=== PATIENT | male | born 1935 | race Caucasian/White ===

== ENCOUNTER 2019-08-19 10:36 | Emergency (ER) | payer MEDICARE, OTHER ==
[2019-08-19 11:25] LABS: CHLORIDE,CL 106 mmol/L (98-107); SODIUM,NA 143 mmol/L (136-145)
[2019-08-19 11:26] LABS: ANION GAP 13.7 mmol/L (10-20)
[2019-08-19] MEDS ORDERED: Doxycycline 100 MG Cap PO ONE (11:47)
--- NOTE | 2019-08-19 11:51 | CR ---
[id number] RAD/RAD Chest PA And Lateral EXAM: FRONTAL AND LATERAL CHEST INDICATION: SYNCOPE, BRADYCARDIA. COMPARISON: June 24, 2015. DISCUSSION: The lungs are mildly hyperinflated, but clear. Normal heart size. Stimulator generator overlying the left upper chest. IMPRESSION: 1. No acute findings. Frank Rubio MD 08/19/19 1401 Thank you for allowing us to participate in the care of your patient.
[2019-08-19 12:36] VITALS: BP 118/69; PULSE 78
--- NOTE | 2019-08-19 19:00 | EDM.PDOC ---
ED HPI GENERAL MEDICAL PROBLEM - General Chief Complaint: General Time Seen by Provider: 08/19/19 10:36 Source of Information: Reports: Patient, Family History Limitations: Reports: No Limitations - History of Present Illness INITIAL COMMENTS - FREE TEXT/NARRATIVE: Pt. presents to ER from clinic. He states that he has been experiencing cough, chest congestion for the past several days. He states that last night began experiencing increased fatigue and weakness. Denies any nausea, vomiting, or diarrhea. Pt. states that he has not been experiencing any sore throat. No rhinorrhea. He states that he has his flu shot this year. Denies any chest pain, increased peripheral edema, rashes, or other worrisome signs/symptoms. Onset: Today Onset Date: 08/19/19 Duration: Constant Location: Reports: Generalized Severity: Moderate - Related Data Allergies Allergy/AdvReac Type Severity Reaction Status Date / Time celecoxib [From Celebrex] Allergy Cannot Verified 08/19/19 10:52 Remember memantine HCl [From Namenda] Allergy Other Verified 08/19/19 10:52 rofecoxib [From Vioxx] Allergy Cannot Verified 08/19/19 10:52 Remember donepezil HCl [From Aricept] AdvReac Diarrhea Verified 08/19/19 10:52 Home Meds: Home Meds Aspirin [Halfprin] 81 mg PO MOWEFR 12/06/14 [History] Cholecalciferol (Vitamin D3) [Vitamin D3] 1,000 units PO BID 12/06/14 [History] Gabapentin [Neurontin] 900 mg PO TID 12/06/14 [History] Simvastatin 20 mg PO BEDTIME 12/06/14 [History] Cyanocobalamin (Vitamin B-12) [B-12] 1,000 mcg PO DAILY 06/26/15 [History] Albuterol/Ipratropium [Combivent Respimat] 16 gm INH QIDRT #120 inhaler [Rx] Furosemide [Lasix] 40 mg PO DAILY #30 tablet 07/04/15 [Rx] Docusate Sodium [Colace] 100 mg PO BID 08/19/19 [History] Famotidine [Pepcid] 20 mg PO BEDTIME 08/19/19 [History] Salmeterol Xinafoate [Serevent Diskus] 50 mcg INH Q12H 08/19/19 [History] Warfarin [Coumadin] 2.5 mg PO ASDIRECTED 08/19/19 [History] Past Medical History Cardiovascular History: Reports: Afib, High Cholesterol, Hypertension, Other ( See Below) Other Cardiovascular History: diastolic dysfunction Respiratory History: Reports: Asthma, Sleep Apnea Gastrointestinal History: Reports: Colon Polyp, Diverticulosis, GERD Musculoskeletal History: Reports: Other (See Below) Other Musculoskeletal History: essential tremor, lumbosacral radiculopathy at L5 Neurological History: Reports: CVA, TIA Other Neuro History: cognitive impairment Oncologic (Cancer) History: Reports: Prostate, Other (See Below) Other Oncologic History: skin - Past Surgical History Other Neurological Surgeries/Procedures: deep brain stimulator placement Social & Family History - Family History Family Medical History: Noncontributory - Tobacco Use Smoking Status *Q: Unknown Ever Smoked ED ROS GENERAL - Review of Systems Review Of Systems: See Below Constitutional: Reports: No Symptoms HEENT: Reports: No Symptoms Respiratory: Reports: Shortness of Breath, Cough, Sputum Cardiovascular: Reports: No Symptoms Endocrine: Reports: No Symptoms GI/Abdominal: Reports: No Symptoms : Reports: No Symptoms Musculoskeletal: Reports: No Symptoms Skin: Reports: No Symptoms Neurological: Reports: No Symptoms Psychiatric: Reports: No Symptoms Hematologic/Lymphatic: Reports: No Symptoms Immunologic: Reports: No Symptoms ED EXAM, GENERAL - Physical Exam Exam: See Below Exam Limited By: No Limitations General Appearance: Alert, WD/WN, No Apparent Distress Nose: Normal Inspection, Normal Mucosa, No Blood Throat/Mouth: Normal Inspection, Normal Lips, Normal Teeth, Normal Gums, Normal Oropharynx, Normal Voice, No Airway Compromise Head: Atraumatic, Normocephalic Neck: Normal Inspection, Supple, Non-Tender, Full Range of Motion Respiratory/Chest: Decreased Breath Sounds, Rhonchi Cardiovascular: Normal Peripheral Pulses, Regular Rate, Rhythm, No Edema, No JVD , No Murmur, No Rub Peripheral Pulses: 4+: Radial (L) GI/Abdominal: Normal Bowel Sounds, Soft, Non-Tender, No Organomegaly, No Distention, No Mass (Male) Exam: Deferred Rectal (Males) Exam: Deferred Back Exam: Normal Inspection, Full Range of Motion Extremities: Normal Inspection, Normal Range of Motion, Non-Tender, No Pedal Edema, Normal Capillary Refill Neurological: Alert, Oriented, CN II-XII Intact, Normal Cognition, Normal Gait, Normal Reflexes, No Motor/Sensory Deficits Psychiatric: Normal Affect, Normal Mood Skin Exam: Warm, Dry, Intact, Normal Color, No Rash Lymphatic: No Adenopathy Course - Vital Signs Last Recorded V/S: Last Vital Signs Temp 37.7 C 08/19/19 11:45 Pulse 78 08/19/19 11:45 Resp 16 08/19/19 11:45 BP 118/69 08/19/19 11:45 Pulse Ox 95 08/19/19 11:45 - Orders/Labs/Meds Orders: Active Orders 24 hr Category Date Time Status CULTURE BLOOD [BC] Stat Lab 08/19/19 10:56 Received CULTURE BLOOD [BC] Stat Lab 08/19/19 10:57 Received Blood Culture x2 Reflex Set [OM.PC] Stat Oth 08/19/19 10:46 Ordered Labs: Laboratory Tests 08/19/19 08/19/19 08/19/19 Range/Units 10:57 10:57 10:57 WBC 7.0 (4.0-10.0) x10^3/uL RBC 4.73 (4.5-6.0) x10^6/uL Hgb 14.9 (14.0-18.0) g/dL Hct 43.9 (40.0-52.0) % MCV 92.8 (78.0-93.0) fL MCH 31.5 (26.0-32.0) pg MCHC 33.9 (32.0-36.0) g/dL RDW Coeff of Dima 14.1 (10.0-15.0) % Plt Count 119 L (130-400) x10^3/uL Neut % (Auto) 63.1 (50.0-80.0) % Lymph % (Auto) 15.5 L (25.0-50.0) % [place] % (Auto) 19.7 H (2.0-11.0) % Eos % (Auto) 1.3 (0.0-4.0) % Baso % (Auto) 0.4 (0.2-1.2) % PT 22.8 H (10.0-12.8) SEC INR 2.0 (2.0-3.5) Sodium 143 (136-145) mmol/L Potassium 3.7 (3.5-5.1) mmol/L Chloride 106 (98-107) mmol/L Carbon Dioxide 27 (21-32) mmol/L Anion Gap 13.7 (10-20) mmol/L BUN 20 H (7-18) mg/dL Creatinine 1.2 (0.70-1.30) mg/dL Est Cr Clr Drug Dosing TNP Estimated GFR (MDRD) 58 Glucose 143 H (74-106) mg/dL Lactic Acid (0.4-2.0) mmol/L Calcium 8.7 (8.5-10.1) mg/dL Corrected Calcium 9.10 (8.5-10.1) mg/dL Magnesium 1.8 (1.8-2.4) mg/dL Total Bilirubin 0.6 (0.2-1.0) mg/dL AST 23 (15-37) U/L ALT 29 (16-63) U/L Alkaline Phosphatase 75 (46-116) U/L C-Reactive Protein 2.3 H (<=0.9) mg/dL Total Protein 7.0 (6.4-8.2) g/dL Albumin 3.5 (3.4-5.0) g/dL Globulin 3.5 Albumin/Globulin Ratio 1.00 08/19/19 Range/Units 10:57 WBC (4.0-10.0) x10^3/uL RBC (4.5-6.0) x10^6/uL Hgb (14.0-18.0) g/dL Hct (40.0-52.0) % MCV (78.0-93.0) fL MCH (26.0-32.0) pg MCHC (32.0-36.0) g/dL RDW Coeff of Dima (10.0-15.0) % Plt Count (130-400) x10^3/uL Neut % (Auto) (50.0-80.0) % Lymph % (Auto) (25.0-50.0) % [place] % (Auto) (2.0-11.0) % Eos % (Auto) (0.0-4.0) % Baso % (Auto) (0.2-1.2) % PT (10.0-12.8) SEC INR (2.0-3.5) Sodium (136-145) mmol/L Potassium (3.5-5.1) mmol/L Chloride (98-107) mmol/L Carbon Dioxide (21-32) mmol/L Anion Gap (10-20) mmol/L BUN (7-18) mg/dL Creatinine (0.70-1.30) mg/dL Est Cr Clr Drug Dosing Estimated GFR (MDRD) Glucose (74-106) mg/dL Lactic Acid 1.8 (0.4-2.0) mmol/L Calcium (8.5-10.1) mg/dL Corrected Calcium (8.5-10.1) mg/dL Magnesium (1.8-2.4) mg/dL Total Bilirubin (0.2-1.0) mg/dL AST (15-37) U/L ALT (16-63) U/L Alkaline Phosphatase (46-116) U/L C-Reactive Protein (<=0.9) mg/dL Total Protein (6.4-8.2) g/dL Albumin (3.4-5.0) g/dL Globulin Albumin/Globulin Ratio Meds: Medications Discontinued Medications Generic Name Dose Route Start Last Admin Trade Name Freq PRN Reason Stop Dose Admin Doxycycline Hyclate 100 mg 08/19/19 11:47 08/19/19 11:56 Vibramycin PO 08/19/19 11:48 100 mg ONETIME ONE Administration - Radiology Interpretation Free Text/Narrative:: No obvious infiltrate noted on chest x-ray Departure - Departure Time of Disposition: 13:00 Disposition: Home, Self-Care 01 Clinical Impression: Bronchitis - Discharge Information Instructions: Doxycycline tablets or capsules, Acute Bronchitis, Adult Referrals: Melva Augustin PA-C [Primary Care Provider] - Forms: ED Department Discharge Additional Instructions: Doxycycline 100mg 1 tab twice daily for 10 days Tylenol and ibuprofen as needed for fever/discomfort Drink plenty of fluids recheck in clinic in 7-10 days, sooner if not improving. You should contact the coumadin clinic and let them know that you are on an antibiotic than can affect your INR. This will need to be rechecked soon. Sepsis Event Note - Evaluation Sepsis Screening Result: No Definite Risk - Focused Exam Vital Signs: Vital Signs Temp Pulse Resp BP Pulse Ox 08/19/19 11:45 37.7 C 78 16 118/69 95 08/19/19 10:36 37.5 C 87 18 114/45 L 93 L Date Exam was Performed: 08/19/19 Time Exam was Performed: 18:51 - My Orders Last 24 Hours: My Active Orders 08/19/19 10:46 Blood Culture x2 Reflex Set [OM.PC] Stat 08/19/19 10:56 CULTURE BLOOD [BC] Stat 08/19/19 10:57 CULTURE BLOOD [BC] Stat - Assessment/Plan Last 24 Hours: My Active Orders 08/19/19 10:46 Blood Culture x2 Reflex Set [OM.PC] Stat 08/19/19 10:56 CULTURE BLOOD [BC] Stat 08/19/19 10:57 CULTURE BLOOD [BC] Stat Plan: Doxycycline 100mg 1 tab twice daily for 10 days Tylenol and ibuprofen as needed for fever/discomfort Drink plenty of fluids recheck in clinic in 7-10 days, sooner if not improving. You should contact the coumadin clinic and let them know that you are on an antibiotic than can affect your INR. This will need to be rechecked soon.
== END 2019-08-19 12:00 | disposition home or self-care (01) ==
LOC: VM.ED 10:36
DX: J40 Bronchitis, not specified as acute or chronic (principal); I48.91 Unspecified atrial fibrillation; E78.00 Pure hypercholesterolemia, unspecified; I10 Essential (primary) hypertension; J45.909 Unspecified asthma, uncomplicated; K21.9 Gastro-esophageal reflux disease without esophagitis; Z88.6 Allergy status to analgesic agent; Z88.8 Allergy status to other drugs, medicaments and biological substances; Z79.82 Long term (current) use of aspirin; Z79.01 Long term (current) use of anticoagulants; Z86.73 Personal history of transient ischemic attack (TIA), and cerebral infarction without residual deficits; Z79.899 Other long term (current) drug therapy
CPT/HCPCS: 36415; 71046; 80053; 83605; 83735; 85025; 85610; 86140; 87040; 87804; 87804-59; 99283-GF; 99285-25; A9270-GY

== ENCOUNTER 2021-05-21 16:24 | Emergency (ER) | payer MEDICARE, OTHER ==
--- NOTE | 2021-05-21 16:49 | EDM.PDOC ---
ED HPI GENERAL MEDICAL PROBLEM - General Chief Complaint: General Stated Complaint: DIZZY Time Seen by Provider: 05/21/21 16:30 Source of Information: Reports: Patient, EMS History Limitations: Reports: No Limitations - History of Present Illness INITIAL COMMENTS - FREE TEXT/NARRATIVE: Patient brought in by EMS secondary having blurred vision that he describes as the vision is leaning to the left side and he also feels like he is leaning to the left side. He also had some episodes of bradycardia at the care center heart rates down into the 30s 40s per EMS though upon arrival he was in the 50s. Per EMS he had a negative stroke scale upon arrival and was transported here to the ER. Patient denies any headache positive for vision changes no nausea no weakness no trouble with speech he denies have any prior strokes He has no other complaints at this time Onset: Sudden Duration: Hour(s):, Other Severity: Mild Improves with: Reports: None Worsens with: Reports: None Associated Symptoms: Denies: Confusion, Headaches, Loss of Appetite, Nausea/Vomiting, Shortness of Breath, Syncope, Weakness - Related Data Allergies Allergy/AdvReac Type Severity Reaction Status Date / Time celecoxib [From Celebrex] Allergy Cannot Verified 08/19/19 10:52 Remember memantine HCl [From Namenda] Allergy Other Verified 08/19/19 10:52 rofecoxib [From Vioxx] Allergy Cannot Verified 08/19/19 10:52 Remember donepezil HCl [From Aricept] AdvReac Diarrhea Verified 08/19/19 10:52 Home Meds: Home Meds Aspirin [Halfprin] 81 mg PO MOWEFR 12/06/14 [History] Cholecalciferol (Vitamin D3) [Vitamin D3] 1,000 units PO BID 12/06/14 [History] Gabapentin [Neurontin] 900 mg PO TID 12/06/14 [History] Simvastatin 20 mg PO BEDTIME 12/06/14 [History] Cyanocobalamin (Vitamin B-12) [B-12] 1,000 mcg PO DAILY 06/26/15 [History] Albuterol/Ipratropium [Combivent Respimat] 16 gm INH QIDRT #120 inhaler 07/04/15 [Rx] Furosemide [Lasix] 40 mg PO DAILY #30 tablet 07/04/15 [Rx] Docusate Sodium [Colace] 100 mg PO BID 08/19/19 [History] Famotidine [Pepcid] 20 mg PO BEDTIME 08/19/19 [History] Salmeterol Xinafoate [Serevent Diskus] 50 mcg INH Q12H 08/19/19 [History] Warfarin [Coumadin] 2.5 mg PO ASDIRECTED 08/19/19 [History] Past Medical History Cardiovascular History: Reports: Afib, High Cholesterol, Hypertension, Other (See Below) Other Cardiovascular History: diastolic dysfunction Respiratory History: Reports: Asthma, Sleep Apnea Gastrointestinal History: Reports: Colon Polyp, Diverticulosis, GERD Musculoskeletal History: Reports: Other (See Below) Other Musculoskeletal History: essential tremor, lumbosacral radiculopathy at L5 Neurological History: Reports: CVA, TIA Other Neuro History: cognitive impairment Oncologic (Cancer) History: Reports: Prostate, Other (See Below) Other Oncologic History: skin - Past Surgical History Other Neurological Surgeries/Procedures: deep brain stimulator placement Social & Family History - Family History Family Medical History: No Pertinent Family History ED ROS GENERAL - Review of Systems Review Of Systems: See Below Constitutional: Reports: No Symptoms HEENT: Reports: Vision Change Respiratory: Reports: No Symptoms Cardiovascular: Reports: No Symptoms Endocrine: Reports: No Symptoms GI/Abdominal: Reports: No Symptoms : Reports: No Symptoms Musculoskeletal: Reports: No Symptoms Skin: Reports: No Symptoms Neurological: Reports: Other (Per EMS he walks with a walker was able to walk from the chair to the cot for transportation no noted problems with gait). Denies: Confusion, Dizziness, Headache, Numbness, Paresthesia, Pre-Existing Deficit, Seizure, Syncope, Tingling, Tremors, Difficulty Walking, Weakness Psychiatric: Reports: No Symptoms Hematologic/Lymphatic: Reports: No Symptoms Immunologic: Reports: No Symptoms ED EXAM, DIZZINESS - Physical Exam Exam: See Below Exam Limited By: No Limitations General Appearance: Alert, WD/WN, No Apparent Distress, Other (Patient is friendly and talkative follows all commands) Eye Exam: Bilateral Eye: EOMI, Normal Inspection, PERRL Ears: Normal External Exam, Normal Canal, Hearing Grossly Normal, Normal TMs Nose: Normal Inspection, Normal Mucosa, No Blood Throat/Mouth: Normal Inspection, Normal Lips, Normal Teeth, Normal Gums, Normal Oropharynx, Normal Voice, No Airway Compromise Head Exam: Atraumatic, Normocephalic Neck: Normal Inspection, Supple, Non-Tender, Full Range of Motion Respiratory/Chest: No Respiratory Distress, Lungs Clear, Normal Breath Sounds, No Accessory Muscle Use, Chest Non-Tender Cardiovascular: Normal Peripheral Pulses, Regular Rate, Rhythm, No Edema, No Gallop, No JVD, No Murmur, No Rub GI/Abdominal: Normal Bowel Sounds, Soft, Non-Tender, No Organomegaly, No Distention Neurological: Alert, Normal Mood/Affect, Normal Dorsiflexion, CN II-XII Intact, Normal Plantar Flexion, Normal Gait, No Motor/Sensory Deficits, Oriented x 3, Other (Patient has equal nursing home physician no pronator sway noted equal facial sensations bilateral strength graded 5 of 5 upper extremity lower extremity) Back Exam: Full Range of Motion Extremities: Normal Inspection, Normal Range of Motion, Non-Tender, No Pedal Edema, Normal Capillary Refill Psychiatric: Normal Affect, Normal Mood Skin Exam: Warm, Dry, Intact, Normal Color, No Rash #1 Interpretation EKG Date: 05/21/21 Rhythm: NSR Rate (Beats/Min): 55 [place]: Normal P-Wave: Present QRS: Normal ST-T: Normal QT: Normal Course - Vital Signs Text/Narrative:: CBC BMP troponin INR EKG CT head CT head no acute findings noted EKG shows normal sinus rhythm bradycardia noted P waves with PVCs Patient has a NIH stroke scale of [address] Baliey check neurology stroke he does not believe this is a stroke with the signs symptoms and a negative NIH score at this time although he does recommend obtaining a CTA head and neck to check for stenosis in the basilar arteries and if everything is normal he can be followed up outpatient CTA head and neck no acute findings noted patient will be discharged back to care facility follow-up with primary care provider in the next 24-48 Patient has been rechecked multiple times no acute changes noted vital signs within normal limit - Orders/Labs/Meds Orders: Active Orders 24 hr Category Date Time Status CTA Neck W & W/O Contrast [Ang Neck] [CT] Stat Exams 05/21/21 18:23 Ordered Labs: Laboratory Tests 05/21/21 05/21/21 05/21/21 Range/Units 16:47 16:47 16:47 WBC 6.3 (4.0-10.0) x10^3/uL RBC 4.42 L (4.5-6.0) x10^6/uL Hgb 13.8 L (14.0-18.0) g/dL Hct 40.4 (40.0-52.0) % MCV 91.4 (78.0-93.0) fL MCH 31.2 (26.0-32.0) pg MCHC 34.2 (32.0-36.0) g/dL RDW Coeff of Dima 14.4 (10.0-15.0) % Plt Count 127 L (130-400) x10^3/uL Immature Gran % (Auto) 0.20 (0.00-0.43) % Neut % (Auto) 55.1 (50.0-80.0) % Lymph % (Auto) 27.8 (25.0-50.0) % [place] % (Auto) 13.2 H (2.0-11.0) % Eos % (Auto) 3.2 (0.0-4.0) % Baso % (Auto) 0.5 (0.2-1.2) % Neut # (Auto) 3.5 (1.8-7.7) x10^3/uL Lymph # (Auto) 1.7 (1.0-4.8) x10^3/uL [place] # (Auto) 0.8 (0.0-0.8) x10^3/uL Eos # (Auto) 0.2 (0.0-0.5) x10^3/uL Baso # (Auto) 0.0 (0.0-0.2) x10^3/uL Immature Gran # (Auto) 0.01 (0.00-0.07) x10^3/uL PT 31.3 H (9.9-12.5) SEC INR 2.8 (2.0-3.5) Sodium 140 (136-145) mmol/L Potassium 4.0 (3.5-5.1) mmol/L Chloride 104 (98-107) mmol/L Carbon Dioxide 30 (21-32) mmol/L Anion Gap 10.0 (5-15) mmol/L BUN 17 (7-18) mg/dL Creatinine 1.0 (0.70-1.30) mg/dL Est Cr Clr Drug Dosing TNP Estimated GFR (MDRD) > 60 Glucose 104 H (70-99) mg/dL POC Glucose (70-99) mg/dL Calcium 8.5 (8.5-10.1) mg/dL 05/21/21 Range/Units 16:48 WBC (4.0-10.0) x10^3/uL RBC (4.5-6.0) x10^6/uL Hgb (14.0-18.0) g/dL Hct (40.0-52.0) % MCV (78.0-93.0) fL MCH (26.0-32.0) pg MCHC (32.0-36.0) g/dL RDW Coeff of Dima (10.0-15.0) % Plt Count (130-400) x10^3/uL Immature Gran % (Auto) (0.00-0.43) % Neut % (Auto) (50.0-80.0) % Lymph % (Auto) (25.0-50.0) % [place] % (Auto) (2.0-11.0) % Eos % (Auto) (0.0-4.0) % Baso % (Auto) (0.2-1.2) % Neut # (Auto) (1.8-7.7) x10^3/uL Lymph # (Auto) (1.0-4.8) x10^3/uL [place] # (Auto) (0.0-0.8) x10^3/uL Eos # (Auto) (0.0-0.5) x10^3/uL Baso # (Auto) (0.0-0.2) x10^3/uL Immature Gran # (Auto) (0.00-0.07) x10^3/uL PT (9.9-12.5) SEC INR (2.0-3.5) Sodium (136-145) mmol/L Potassium (3.5-5.1) mmol/L Chloride (98-107) mmol/L Carbon Dioxide (21-32) mmol/L Anion Gap (5-15) mmol/L BUN (7-18) mg/dL Creatinine (0.70-1.30) mg/dL Est Cr Clr Drug Dosing Estimated GFR (MDRD) Glucose (70-99) mg/dL POC Glucose 102 H (70-99) mg/dL Calcium (8.5-10.1) mg/dL Departure - Departure Time of Disposition: 20:15 Disposition: [facility] Condition: Good Clinical Impression: Vision changes, Dizziness, Bradycardia - Discharge Information *PRESCRIPTION DRUG MONITORING PROGRAM REVIEWED*: No *COPY OF PRESCRIPTION DRUG MONITORING REPORT IN PATIENT RUKHSANA: No Referrals: Melva Augustin PA-C [Primary Care Provider] - Forms: ED Department Discharge - Problem List & Annotations (1) Bradycardia SNOMED Code(s): 17129361 Code(s): R00.1 - BRADYCARDIA, UNSPECIFIED Status: Acute Current Visit: Yes (2) Dizziness SNOMED Code(s): 782224899, 527530837 Code(s): R42 - DIZZINESS AND GIDDINESS Status: Acute Current Visit: Yes (3) Vision changes SNOMED Code(s): 564245571 Code(s): H53.9 - UNSPECIFIED VISUAL DISTURBANCE Status: Acute Current Visit: Yes - My Orders Last 24 Hours: My Active Orders 05/21/21 18:23 CTA Neck W & W/O Contrast [Ang Neck] [CT] Stat - Assessment/Plan Last 24 Hours: My Active Orders 05/21/21 18:23 CTA Neck W & W/O Contrast [Ang Neck] [CT] Stat
--- NOTE | 2021-05-21 17:03 | CT ---
[id number] CT/CT Head Stroke Protocol EXAM: CT Head Stroke Protocol CLINICAL DATA: BLURRED VISION. STROKE CODE. COMPARISON STUDY: None FINDINGS: Left frontal approach deep brain stimulator device leads in place. Tip projects over the left thalamus. Moderate to advanced changes of parenchymal atrophy throughout both cerebral hemispheres. Additionally there is juxtacortical and periventricular white matter hypodensity. Findings are most consistent with sequela of chronic small vessel disease. No intracranial hemorrhage, extra-axial fluid collection, mass, or CT evidence of acute large vessel ischemia. No hydrocephalus. Calvarium intact. Paranasal sinuses and mastoid air cells are clear. IMPRESSION: No acute intracranial findings. Salbador Valdez MD 05/21/21 3086 Thank you for allowing us to participate in the care of your patient.
[2021-05-21 17:05] LABS: CHLORIDE,CL 104 mmol/L (98-107); SODIUM,NA 140 mmol/L (136-145)
--- NOTE | 2021-05-21 19:55 | CT ---
[id number] CT/CTA Head Neck EXAM: CT angiogram head and neck INDICATION: Blurred vision. COMPARISON: CT brain from today. DISCUSSION: Aortic arch: The partially imaged aortic arch is normal in caliber with a conventional branching morphology. Right carotid artery: Calcified atherosclerotic plaque in the distal common segment extending to the carotid bulb into the proximal internal segment. No significant stenosis or other abnormality. Left carotid artery: Calcified atherosclerotic plaque in the distal common segment extending to the carotid bulb into the proximal internal segment. Normal in caliber. No significant stenosis or other abnormality. Right vertebral artery: Ends as PICA, normal variant. No significant stenosis or other abnormality. Left vertebral artery: Normal in caliber. No significant stenosis or other abnormality. Basilar artery: Normal in caliber. No significant stenosis or other abnormality. [place]: origin of the left posterior cerebral artery, normal variant of anatomy. No vessel cut off, significant stenosis, aneurysm or vascular malformation is identified. Dural sinuses, jugular veins and cerebral veins: Limited evaluation of the cerebral veins, dural sinuses and jugular veins is unremarkable. Brain parenchyma: Unremarkable. Neck soft tissues: Unremarkable. Osseous structures: Straightening of the normal cervical lordosis with advanced degenerative disc disease. IMPRESSION: No large vessel occlusion in the brain. No aneurysm, dissection, or high-grade stenosis in the carotid, vertebral, or intracranial arterial vasculature. Other findings are described below. Salbador Valdez MD 05/21/211953 Thank you for allowing us to participate in the care of your patient.
[2021-05-21] MEDS ORDERED: Meclizine 25 MG Tab PO ONE (20:19)
== END 2021-05-21 21:40 ==
LOC: VM.ED 16:24
DX: H53.9 Unspecified visual disturbance (principal); R42 Dizziness and giddiness; R00.1 Bradycardia, unspecified; I48.91 Unspecified atrial fibrillation; E78.00 Pure hypercholesterolemia, unspecified; I10 Essential (primary) hypertension; K21.9 Gastro-esophageal reflux disease without esophagitis; Z86.73 Personal history of transient ischemic attack (TIA), and cerebral infarction without residual deficits; Z79.82 Long term (current) use of aspirin; Z79.01 Long term (current) use of anticoagulants; Z79.899 Other long term (current) drug therapy
CPT/HCPCS: 70450; 70496; 80048; 82947; 85025; 85610; 93010; 99284; 99285-25

== ENCOUNTER 2021-10-25 15:25 | Emergency (ER) | payer MEDICARE, OTHER ==
[2021-10-25 16:03] VITALS: BP 128/66; PULSE 62
[2021-10-25 16:09] LABS: CHLORIDE,CL 107 mmol/L (98-107); SODIUM,NA 142 mmol/L (136-145)
[2021-10-25 16:11] LABS: ANION GAP 15.3 mmol/L (5-15)
[2021-10-25] MEDS ORDERED: Iopamidol 755 Mg/ML 100 ML Bottle IVPUSH ONE (16:28)
[2021-10-25] MEDS ORDERED: Sodium Chloride 0.9% 1,000 ML IV SCH (16:45)
[2021-10-25] MEDS ORDERED: Iopamidol 612 MG/ML 50 ML SDV IVPUSH ONE (16:50)
== END 2021-10-25 18:29 | disposition home or self-care (01) ==
LOC: VM.ED 15:25
DX: K52.9 Noninfective gastroenteritis and colitis, unspecified (principal); J44.9 Chronic obstructive pulmonary disease, unspecified; Z86.73 Personal history of transient ischemic attack (TIA), and cerebral infarction without residual deficits; Z79.899 Other long term (current) drug therapy; Z88.1 Allergy status to other antibiotic agents; Z88.8 Allergy status to other drugs, medicaments and biological substances
CPT/HCPCS: 74177; 80053; 81001; 83690; 85025; 86140; 99284; 99284-25; J7030; Q9967

== ENCOUNTER 2021-12-23 00:51 | Emergency (ER) | payer MEDICARE, OTHER ==
[2021-12-23 01:30] VITALS: BP 118/55; PULSE 63
[2021-12-23] MEDS ORDERED: Lidocaine 1% 5 ML VIAL INJECT ONE (01:35)
== END 2021-12-23 02:33 ==
LOC: VM.ED 00:51
DX: L76.22 Postprocedural hemorrhage of skin and subcutaneous tissue following other procedure (principal)
CPT/HCPCS: 12001; 36415; 85610; 99283; 99285-25

== ENCOUNTER 2023-11-26 11:54 | Emergency (ER) | payer MEDICARE, OTHER ==
[2023-11-26 12:38] LABS: BASOPHILS PERCENT AUTO 0.5 % (0.2-1.2); EOSINOPHILS ABSOLUTE AUTO 0.1 x10^3/uL (0.0-0.5); EOSINOPHILS PERCENT AUTO 1.3 % (0.0-4.0); HEMATOCRIT 40.7 % (40.0-52.0); HEMOGLOBIN 13.6 g/dL (14.0-18.0); IMMATURE GRAN ABSOLUTE AUTO 0.03 x10^3/uL (0.00-0.07); LYMPHOCYTES ABSOLUTE AUTO 1.1 x10^3/uL (1.0-4.8); LYMPHOCYTES PERCENT AUTO 15.4 % (25.0-50.0); MEAN CORPUSCULAR HEMOGLOBIN 31.9 pg (26.0-32.0); MEAN CORPUSCULAR HGB CONC 33.4 g/dL (32.0-36.0); MEAN CORPUSCULAR VOLUME 95.5 fL (78.0-93.0); MONOCYTES PERCENT AUTO 12.8 % (2.0-11.0); NEUTROPHILS ABSOLUTE AUTO 5.2 x10^3/uL (1.8-7.7); NEUTROPHILS PERCENT AUTO 69.6 % (50.0-80.0); PLATELET COUNT,PLT 112 x10^3/uL (130-400); RED BLOOD CELL COUNT 4.26 x10^6/uL (4.5-6.0); WHITE BLOOD CELL COUNT,WBC 7.4 x10^3/uL (4.0-10.0)
[2023-11-26 13:03] LABS: ANION GAP 9.1 mmol/L (5-15); BLOOD UREA NITROGEN,BUN 16 mg/dL (7-18); CALCIUM 8.8 mg/dL (8.5-10.1); CARBON DIOXIDE,CO2 39 mmol/L (21-32); CHLORIDE,CL 98 mmol/L (98-107); CREATININE 0.8 mg/dL (0.70-1.30); ESTIMATED GFR 85 mL/min (>=60); GLUCOSE RANDOM 233 mg/dL (70-99); POTASSIUM,K 4.1 mmol/L (3.5-5.1); PRO B-TYPE NATRIUR PEPT,BNPPRO 1169 pg/mL (<=450); SODIUM,NA 142 mmol/L (136-145)
[2023-11-26] MEDS: Magnesium Sulfate/Water 2 GM in Premix Bag 1 BAG IV ONE (13:31)
[2023-11-26 14:51] VITALS: BP 128/78; PULSE 68
== END 2023-11-26 15:06 ==
LOC: VM.ED 11:54
DX: I11.0 Hypertensive heart disease with heart failure (principal); I50.9 Heart failure, unspecified; I48.91 Unspecified atrial fibrillation; E78.00 Pure hypercholesterolemia, unspecified; I25.2 Old myocardial infarction; J44.89 Other specified chronic obstructive pulmonary disease; K21.9 Gastro-esophageal reflux disease without esophagitis; Z88.8 Allergy status to other drugs, medicaments and biological substances; Z79.899 Other long term (current) drug therapy
CPT/HCPCS: 36415; 71045; 80048; 83735; 83880; 85025; 93005; 96365; 99285-25; J3475